=== PATIENT | female | born 1955 | race Caucasian/White ===

== ENCOUNTER → 2017-02-23 | Outpatient (CLI) | payer MEDICARE ==
[~2017-02-23] VITALS: Ht 154.9 cm; Wt 145.1 kg
[~2017-02-23] MED LIST: AMLO10TA2 PO; BUME2TAB PO; CHLORHEXIDINE GLUCONATE 2 % 1 PACK (2 CLOTHS) TOPICAL PRN; DEXTROSE 5%-LACTATED RING INJ 1,000 ML IV SCH; FERR325T18 PO; FLUC200T2 PO; LACTATED RINGER'S 1000 ML IV PRN; LEVO25TA4 PO; LIDOCAINE HCL 1% PF 5 ML SYRINGE OTHER ONE; LOSA25TA PO; MAPA500C PO; META1TAB19 PO; METOPROLOL TARTRATE 25 MG TAB PO PRN; OMEP20TA93 PO; PERC5TAB12 PO; PIOG15TA5 PO; POTA-163 PO; POVIDONE IODINE 5% (ANTISEPSIS KIT) 4 APPLICATIONS EACH NARE PRN; PROPOFOL 200 MG/20 ML AMP IV ONE; PROZ20CA11 PO; SODIUM CHLORID 0.9% 500 ML IV PRN; WARF-22 PO; WARF-23 PO
[2017-02-23 10:02] VITALS: BP 109/52; PULSE 95; RESP 20; TEMP 98.4; O2SAT 95
--- NOTE | 2017-02-23 11:19 | GIPROC ---
[facility] [address] [facility]. [facility], [address] EGD PROCEDURE REPORT EXAM DATE: 02/23/2017 PATIENT NAME: Rozina Mujica MR #: [id number] BIRTHDATE: 1955 ATTENDING: Marguerite Ulrich MD ORDER #: [id number] MEDIA RELATIONS SPECIALIST: Eliza Goldsmith and Elidia Almeida STATUS: outpatient INDICATIONS: The patient is a 61 yr old female here for an EGD due to reflux, clearence for bariatric surgery PROCEDURE PERFORMED: EGD w/ biopsy MEDICATIONS: None and Per Anesthesia. TOPICAL ANESTHETIC: none CONSENT: The patient understands the risks and benefits of the procedure and understands that these risks include, but are not limited to: sedation, allergic reaction, infection, perforation and/or bleeding. Alternative means of evaluation and treatment include, among others: physical exam, x-rays, and/or surgical intervention. The patient elects to proceed with this endoscopic procedure. medical equipment was checked for proper function. Hand hygiene and appropriate measures for infection prevention was taken. After the risks, benefits and alternatives of the procedure were thoroughly explained, Informed consent was verified, confirmed and timeout was successfully executed by the treatment team. The patient was anesthetized with topical anesthesia and the EC-3490Li (Pedi C) endoscope was introduced through the mouth and advanced to the second portion of the duodenum. Retroflexed views revealed a hiatal hernia The gastroscope was then slowly withdrawn and removed. Gastritis antrum-biopsy esophagitis distal esophagus-biopsy. ADVERSE EVENTS: There were no complications. IMPRESSIONS: 1. Gastritis antrum-biopsy esophagitis distal esophagus-biopsy 2. Retroflexed views revealed a hiatal hernia RECOMMENDATIONS: 1. Await biopsy results. Biopsy results will not be ready for 7-10 days. If you don't hear from us in two weeks, call our office for biopsy results. 2. Anti-reflux regimen 3. Continue PPI 4. Ok for bariatric surgery PATIENT CONDITION: stable DISPOSITION: Home REPEAT EXAM: Return 3 years EGD Marguerite Ulrich MD eSigned: Marguerite Ulrich MD 02/23/2017 11:19 AM cc: Robson Beatty M.D.
--- NOTE | 2017-02-23 11:22 | GIPROC ---
[facility] [address] [facility]. [facility], [address] COLONOSCOPY PROCEDURE REPORT EXAM DATE: 02/23/2017 PATIENT NAME: Rozina Mujica MR #: [id number] BIRTHDATE: 1955 ENDOSCOPIST: Marguerite Ulrich MD ORDER #: [id number] LOGISTIC SPECIALIST: Eliza Goldsmith and Elidia Almeida STATUS: outpatient INDICATIONS: The patient is a 61 yr old female here for a colonoscopy due to screening , high risk family history of colon cancer, history of polyps PROCEDURE PERFORMED: Colonoscopy, screening MEDICATIONS: None and Per Anesthesia. PREP QUALITY: good PREP TYPE:Other: ESTIMATED BLOOD LOSS: None CONSENT: The patient understands the risks and benefits of the procedure and understands that these risks include, but are not limited to: sedation, allergic reaction, infection, perforation and/or bleeding. Alternative means of evaluation and treatment include, among others: physical exam, x-rays, and/or surgical intervention. The patient elects to proceed with this endoscopic procedure. medical equipment was checked for proper function. Hand hygiene and appropriate measures for infection prevention was taken. After the risks, benefits and alternatives of the procedure were thoroughly explained, Informed consent was verified, confirmed and timeout was successfully executed by the treatment team. A digital exam revealed external hemorrhoids The Pentax EC-3490Li endoscope was introduced through the anus and advanced to the cecum, which was identified by both the appendix and ileocecal valve. The instrument was then slowly withdrawn as the colon was fully examined. COLON FINDINGS: Diverticulosis sigmoid,descending. Retroflexed views revealed internal hemorrhoids and Retroflexed views revealed medium internal hemorrhoids The scope was then completely withdrawn from the patient and the procedure terminated. PROCEDURE WITHDRAWAL TIME:6minutes ADVERSE EVENTS: There were no complications. IMPRESSIONS: 1. Diverticulosis sigmoid,descending 2. Retroflexed views revealed internal hemorrhoids 3. Retroflexed views revealed medium internal hemorrhoids 4. Revealed external hemorrhoids RECOMMENDATIONS: 1. Benefiber 2 tsp daily 2. Probiotics from any [facility] or health food store 3. Yearly rectal exams RECALL: Return 5 years Colonoscopy Marguerite Ulrich MD eSigned: Marguerite Ulrich MD 02/23/2017 11:22 AM cc: Robson Beatty M.D.
[2017-02-23 12:03] VITALS: BP 100/72; PULSE 88; RESP 16; TEMP 97; O2SAT 96
--- NOTE | 2017-02-23 20:57 | EKG ---
Date Performed: 02/23/2017 Time Performed: 09:27:19 PTAGE: 61 years EKG: Sinus rhythm NORMAL ECG PREVIOUS TRACING : 12/07/2002 01.33 Compared to prior tracing no significant change DOCTOR: Saima Kolb Interpretating Date/Time 02/23/2017 20:55:01
== END ==
LOC: HSDC 08:29
PROVIDERS: ATTEND Internal Medicine Gastroenterology
DX: Z01.818 Encounter for other preprocedural examination (principal); E66.01 Morbid (severe) obesity due to excess calories; Z68.44 Body mass index [BMI] 60.0-69.9, adult; K21.0 Gastro-esophageal reflux disease with esophagitis; K44.9 Diaphragmatic hernia without obstruction or gangrene; Z12.11 Encounter for screening for malignant neoplasm of colon; Z80.0 Family history of malignant neoplasm of digestive organs; K57.30 Diverticulosis of large intestine without perforation or abscess without bleeding; K64.8 Other hemorrhoids; K64.4 Residual hemorrhoidal skin tags; I10 Essential (primary) hypertension
CPT/HCPCS: 00813; 43239; 45378; 88305; 93005; J7120